=== PATIENT | female | born 1950 | race Caucasian/White ===

== ENCOUNTER 2023-07-19 13:43 | Inpatient (IN) | payer MEDICARE, OTHER ==
[2023-07-19] MEDS: Methocarbamol 500 MG TAB PO PRN (17:54)
[2023-07-19] MEDS: Carvedilol 3.125 MG TAB PO SCH (21:29)
[2023-07-19] MEDS: Apixaban 5 MG TAB PO SCH (21:29)
[2023-07-19] MEDS: Ciprofloxacin 500 MG TAB PO SCH (21:29)
[2023-07-19] MEDS: Gabapentin 100 MG CAP PO SCH (21:29)
[2023-07-19] MEDS: HYDROcodone/Acetaminophen 5/325 mg Tablet PO PRN (22:45)
[2023-07-20] MEDS: Levothyroxine Sodium 50 MCG TAB PO SCH (06:29)
[2023-07-20] MEDS: Ondansetron ODT 4 MG TAB PO PRN (07:31)
[2023-07-20] MEDS: Magnesium Oxide 400 MG TAB PO SCH (08:46)
[2023-07-20] MEDS: Furosemide 20 MG TAB PO SCH (08:47)
[2023-07-20] MEDS: Acetaminophen 325 MG TAB PO PRN (12:14)
[2023-07-20] MEDS ORDERED: Lantiseptic Ointment 130 GM JAR TOP PRN (13:04)
[2023-07-20] MEDS: Lantiseptic Ointment 130 GM JAR TOP SCH (20:35)
[2023-07-21] MEDS: HYDROcodone/Acetaminophen 10/325 mg Tablet PO PRN ×2 (03:10→12:14)
[2023-07-21] MEDS: Senokot S 8.6-50 MG TAB PO PRN (13:51)
[2023-07-22 06:17] LABS: Hematocrit 42.7 % (36.0-47.0); Hemoglobin 13.2 g/dL (12.0-16.0); Platelet Count 242 10x3/uL (130-400)
[2023-07-23] MEDS: Ipratropium/Albuterol 3 ML NEB NEB PRN (14:57)
[2023-07-24] MEDS ORDERED: Ondansetron ODT 4 MG TAB PO SCH (14:45)
[2023-07-25] MEDS: Ondansetron ODT 4 MG TAB PO SCH (05:43)
[2023-07-25] MEDS: Furosemide 20 MG TAB PO SCH (08:26)
[2023-07-25] MEDS: Ondansetron ODT 4 MG TAB PO PRN (13:58)
[2023-07-25] MEDS: Carvedilol 3.125 MG TAB PO SCH (20:21)
[2023-07-26] MEDS: Furosemide 20 MG TAB PO SCH (08:58)
[2023-07-26 12:36] LABS: Blood, Urine Negative (Negative); Clarity Slightly Cloudy (Clear); Glucose, Urine (Dipstick) Negative (Negative); Ketone, Urine Negative (Negative); Leukocyte Negative (Negative); Nitrite Negative (Negative); Protein, Urine (Dipstick) Negative (Neg-Trace); Specific Gravity, Urine 1.015 (1.005-1.030)
[2023-07-26 12:40] LABS: Bilirubin Unable to Interpret (Negative)
[2023-07-26 12:41] LABS: CAUTI Indications for Culture Pelvic or flank pain
[2023-07-26 12:47] LABS: Bacteria/HPF None Seen HPF (None Seen); RBC/HPF None Seen HPF (0-3); Squamous Epithelial 0-3 HPF (0-3); WBC/HPF 0-3 HPF (0-3)
[2023-07-26 12:48] LABS: Urine Culture Reflex No No
[2023-07-27] MEDS: LETROZOLE 2.5 MG TABLET PO SCH (08:24)
[2023-07-27] MEDS: Albuterol 1.25 MG (3 mL) NEB NEB PRN (19:28)
[2023-07-28 05:56] LABS: Hematocrit 37.6 % (36.0-47.0); Hemoglobin 11.7 g/dL (12.0-16.0); Mean Corpuscular HGB CONC 31.1 g/dL (32.0-36.0); Mean Corpuscular Hemoglobin 30.9 pg (27.0-31.0); Mean Corpuscular Volume 99.6 fl (78.0-98.0); Mean Platelet Volume 9.4 fL (7.4-10.4); Platelet Count 246 10x3/uL (130-400); RBC Distribution Width 15.4 % (11.5-14.5); Red Blood Cell (RBC) Count 3.78 mill/uL (4.20-5.40); White Blood Cell (WBC) Count 13.1 10x3/uL (4.8-10.8)
[2023-07-28 06:10] LABS: ALT (SGPT) 44 U/L (8-55); AST (SGOT) 135 U/L (5-34); Albumin 2.5 g/dL (3.4-4.8); Alkaline Phosphatase 1478 U/L (40-110); Anion Gap 16 mmol/L (10-20); BUN (Urea Nitrogen) 22 mg/dL (9.8-20.1); Bilirubin, Total 3.5 mg/dL (0.2-1.2); Calc. Creatinine Clearance 123 mL/min (70-130); Calcium 8.5 mg/dL (7.8-10.44); Carbon Dioxide 35 mmol/L (23-31); Chloride 90 mmol/L (98-107); Estimated GFR 78; Globulin 2.7 g/dL (2.4-3.5); Glucose 84 mg/dL (83-110); Protein, Total 5.2 g/dL (5.8-8.1); Sodium 137 mmol/L (136-145)
[2023-07-28] MEDS: Furosemide 20 MG TAB PO SCH (08:19)
[2023-07-29] MEDS: Promethazine 25 MG TAB PO PRN (17:29)
[2023-07-29] MEDS: Bisacodyl 10 MG SUPP PR PRN (17:30)
[2023-07-31] MEDS: Sodium Chloride 0.9% 500 ML IV SCH (18:37)
[2023-08-01] MEDS: Ondansetron ODT 4 MG TAB PO SCH (05:07)
[2023-08-01 05:33] LABS: #Basophils 0.1 thou/uL (0.0-0.2); #Eosinphils 0.1 thou/uL (0.0-0.7); #Lymphocytes 2.6 thou/uL (1.20-3.40); #Neutrophils 12.6 thou/uL (1.40-6.50); %Basophils 0.6 % (0.0-1.0); %Eosinophils 0.8 % (0.0-10.0); %Lymphocytes 14.8 % (21.0-51.0); %Monocytes 11.3 % (0.0-10.0); %Neutrophils 72.5 % (42.0-75.0); Hematocrit 39.6 % (36.0-47.0); Hemoglobin 12.5 g/dL (12.0-16.0); Mean Corpuscular HGB CONC 31.6 g/dL (32.0-36.0); Mean Corpuscular Hemoglobin 31.6 pg (27.0-31.0); Mean Corpuscular Volume 100.1 fl (78.0-98.0); Mean Platelet Volume 8.6 fL (7.4-10.4); Platelet Count 280 10x3/uL (130-400); RBC Distribution Width 15.3 % (11.5-14.5); Red Blood Cell (RBC) Count 3.96 mill/uL (4.20-5.40); White Blood Cell (WBC) Count 17.4 10x3/uL (4.8-10.8)
[2023-08-01 06:01] LABS: ALT (SGPT) 42 U/L (8-55); AST (SGOT) 154 U/L (5-34); Albumin 2.4 g/dL (3.4-4.8); Alkaline Phosphatase 1582 U/L (40-110); Anion Gap 18 mmol/L (10-20); BUN (Urea Nitrogen) 16 mg/dL (9.8-20.1); Bilirubin, Total 4.4 mg/dL (0.2-1.2); Calc. Creatinine Clearance 133 mL/min (70-130); Calcium 8.5 mg/dL (7.8-10.44); Carbon Dioxide 31 mmol/L (23-31); Chloride 92 mmol/L (98-107); Estimated GFR 86; Globulin 2.9 g/dL (2.4-3.5); Glucose 79 mg/dL (83-110); Potassium 5.2 mmol/L (3.5-5.1); Protein, Total 5.3 g/dL (5.8-8.1); Sodium 136 mmol/L (136-145)
[2023-08-01] MEDS: Letrozole 2.5 MG TAB PO SCH (08:40)
[2023-08-01] MEDS: Sodium Chloride 0.9% 1,000 ML IV SCH (08:43)
[2023-08-01 10:18] LABS: Bilirubin Large (Negative); Blood, Urine Negative (Negative); Clarity Clear (Clear); Glucose, Urine (Dipstick) 100 mg/dL (Negative); Ketone, Urine 15 mg/dL (Negative); Leukocyte Negative (Negative); Nitrite Negative (Negative); Protein, Urine (Dipstick) 100 mg/dL (Neg-Trace); Specific Gravity, Urine 1.025 (1.005-1.030); Urobilinogen > or = 8.0 mg/dL (Less than 2); pH, Urine 5.5 (5.0-9.0)
[2023-08-01 10:28] LABS: Bacteria/HPF 1+ HPF (None Seen); RBC/HPF 0-3 HPF (0-3)
[2023-08-02 07:41] LABS: #Basophils 0.2 thou/uL (0.0-0.2); #Eosinphils 0.1 thou/uL (0.0-0.7); #Lymphocytes 1.6 thou/uL (1.20-3.40); #Monocytes 1.9 thou/uL (0.11-0.59); #Neutrophils 11.1 thou/uL (1.40-6.50); %Basophils 1.1 % (0.0-1.0); %Eosinophils 0.6 % (0.0-10.0); %Lymphocytes 10.9 % (21.0-51.0); %Monocytes 12.6 % (0.0-10.0); %Neutrophils 74.8 % (42.0-75.0); ALT (SGPT) 40 U/L (8-55); AST (SGOT) 142 U/L (5-34); Albumin 2.4 g/dL (3.4-4.8); Alkaline Phosphatase 1472 U/L (40-110); Anion Gap 18 mmol/L (10-20); BUN (Urea Nitrogen) 15 mg/dL (9.8-20.1); Bilirubin, Total 4.7 mg/dL (0.2-1.2); Calc. Creatinine Clearance 128 mL/min (70-130); Calcium 8.2 mg/dL (7.8-10.44); Carbon Dioxide 33 mmol/L (23-31); Chloride 90 mmol/L (98-107); Estimated GFR 81; Globulin 2.8 g/dL (2.4-3.5); Glucose 76 mg/dL (83-110); Hematocrit 37.7 % (36.0-47.0); Mean Corpuscular HGB CONC 31.9 g/dL (32.0-36.0); Mean Corpuscular Hemoglobin 31.8 pg (27.0-31.0); Mean Corpuscular Volume 99.7 fl (78.0-98.0); Mean Platelet Volume 9.7 fL (7.4-10.4); Platelet Count 252 10x3/uL (130-400); Potassium 3.6 mmol/L (3.5-5.1); Protein, Total 5.2 g/dL (5.8-8.1); RBC Distribution Width 15.5 % (11.5-14.5); Red Blood Cell (RBC) Count 3.78 mill/uL (4.20-5.40); Sodium 137 mmol/L (136-145); White Blood Cell (WBC) Count 14.8 10x3/uL (4.8-10.8)
[2023-08-02 08:05] VITALS: BP 111/74; TEMP 98.2
[2023-08-02 14:37] VITALS: BMI 44.1
== END 2023-08-02 14:26 | disposition short-term general hospital (02) | DRG 948 ==
LOC: MADMS 15:56
PROVIDERS: ADMIT Family Medicine; ATTEND Family Medicine
DX: R53.81 Other malaise (principal); N39.0 Urinary tract infection, site not specified; I50.32 Chronic diastolic (congestive) heart failure; C22.9 Malignant neoplasm of liver, not specified as primary or secondary; M25.551 Pain in right hip; I11.0 Hypertensive heart disease with heart failure; Z86.711 Personal history of pulmonary embolism; Z90.710 Acquired absence of both cervix and uterus; Z98.890 Other specified postprocedural states; Z88.0 Allergy status to penicillin; Z79.01 Long term (current) use of anticoagulants; Z79.899 Other long term (current) drug therapy; E03.9 Hypothyroidism, unspecified; L89.322 Pressure ulcer of left buttock, stage 2; E86.0 Dehydration
CPT/HCPCS: 36415; 70450; 71045; 80053; 81001; 82140; 85014; 85018; 85025; 85027; 85049; 87040; 87077; 87086; 87186; 94640; J7030; J7050; J7620; Q0162; Q0169